=== PATIENT | female | born 1950 | race Caucasian/White ===

== ENCOUNTER → 2016-08-10 | Outpatient (CLI) | payer OTHER ==
[~2016-08-10] VITALS: Ht 172.7 cm; Wt 106.0 kg
[~2016-08-10] MED LIST: CENESTIN0.9 MG PO; FISH OIL 1,2001 EAC3 PO; FISHOIL PO; HYDROCODON-ACE1 EAC1 PO; HYDROCODON-ACE1 EAC5 PO; HYDROCODONE-AP1 EA12 PO; HYDROCODONE-APA1 TA1 PO; MULTI-VITAMIN1 EAC5 PO; OXYBUTYNIN 5 MG5 M2 PO; PROMETRIUM100 MG PO; SERTRALINE HCL100 MG PO; VENTOLIN HFA 1818 GM INH; VITAMIN D 5050000 I1 PO; ZOLOFT100 MG PO
--- NOTE | ~2016-08-10 | HPC ---
[facility] [place] [address] PAIN MANAGEMENT CONSULTATION Name: ALAYNA ELDRIDGE Room #: REG BIMAL Travis.#: [id number] Admission: 08/10/16 Attend Phys: Daryl Nguyen MD Discharge: Date of : 46 Report #: [id number] THIS REPORT FOR: //name// CC: Dillan Sweeney DO Daryl Nguyen DATE OF SERVICE: 08/10/2016 Followup visit for low back pain with radiculopathy. The patient returns to pain clinic for an epidural steroid injection. She has done well with these injections and last injection was performed in November 2015. She has recently returned from several airline flights where her pain has been exacerbated dramatically. She was using medication to control her pain, but currently is really uncomfortable and would like another injection. She has no spondylolisthesis. MEDICATIONS: Reviewed and reconciled from the electronic medical record. She has not needed new prescription, having received hydrocodone from me just a month ago. PHYSICAL EXAMINATION: Blood pressure 132/60, heart rate 65. She is a delightful easy going 65-year-old and moves easily from sitting to standing position. She has pain with movement of her spine. Straight leg raising is also positive. IMPRESSION: Low back pain with radiculopathy secondary to L4-L5 spondylolisthesis. PLAN: Epidural steroid injection under fluoroscopic guidance. PROCEDURE: She was taken to fluoroscopic suite for treatment, placed prone, skin prepped with ChloraPrep. Skin anesthetized to the left of midline and a 20-gauge Tuohy epidural needle advanced in the epidural space with loss of resistance technique. There was no blood or CSF aspirated, 1 mL of Omnipaque injected. Good spread of dye observed into the epidural space followed by 3 mL 0.5% lidocaine mixed with 80 mg of triamcinolone. She tolerated the procedure well and was observed for 45 minutes and discharged. Followup visit planned as needed. By: [id number] Daryl Nguyen MD /nt
[2016-08-10 14:40] VITALS: BP 132/60
== END | disposition home or self-care (01) ==
LOC: PAIN 07:03
DX: M43.16 Spondylolisthesis, lumbar region (principal); G89.29 Other chronic pain; F11.20 Opioid dependence, uncomplicated

== ENCOUNTER → 2016-11-24 | Outpatient (CLI) | payer OTHER ==
[~2016-11-24] VITALS: Ht 172.7 cm; Wt 99.2 kg
[~2016-11-24] MED LIST changes: +ASPIR 8181 MG PO; +HYDROCODONE-AP1 EA11 PO; +VITAMIN D3400 UNIT PO
--- NOTE | ~2016-11-24 | HPC ---
[facility] [place] [address] PAIN MANAGEMENT CONSULTATION Name: ALAYNA ELDRIDGE Hunter Room #: REG BIMAL Robles.#: [id number] Admission: 11/24/16 Attend Phys: Daryl Nguyen MD Discharge: Date of : 46 Report #: [id number] THIS REPORT FOR: //name// CC: [facility] physician/PCP Dillan Marin DATE OF SERVICE: 11/24/2016 Followup visit for L4-L5 spondylolisthesis with radiculopathy. The patient returns to pain clinic today in followup. She would like another epidural injection. I provided with roughly 3 epidural injections per year for symptoms of radiculopathy and she has responded very favorably. This is the shortest interval that we have had and is likely due to the fact that she has been packing for her move to [place], [place]. Her previous injection interval was roughly 6-7 months. Pain score intensity is a 6-7 today and radiates bilaterally into the legs in the L4-L5 distribution. She denies numbness or weakness. When the pain is severe, she takes hydrocodone, but is very modest in her use. I provided her with 120 tablets and she uses anywhere between 0 and a maximum of 1-2 tablets per day. She is allowed to take up to 4 tablets a day on an as needed basis. She is on an opioid agreement with our clinic, but we will release her from that when she travels to [place]. She uses a single pharmacy. She has had no drug aberrant behaviors and has been on time. Her safeguarding medications have been reviewed at each visit, and she assures us that her medications are kept under lock and burns. She is grateful for the pain relief that she receives and has no significant side effects from medication at the modest dose that she uses. I will provide her with medication today under terms of our agreement and she will transition her prescribing to a physician in [place]. We discussed the concerns for opioids in [place], which have been more serious than in other parts of the [facility]. Hopefully, she will be able to find a physician who is willing to provide this very modest amount of medication for her. We have reviewed the opioid crisis in the [place] and we have discussed the CDC guidelines for using medications carefully and we have been following them in our practice. PHYSICAL EXAMINATION: GENERAL: She is pleasant, alert and oriented. VITAL SIGNS: Blood pressure is 135/78, heart rate 80. EXTREMITIES: She moves from sitting to standing position, walks with antalgic features and notable bilateral pain is seen with straight leg raising following the L4-L5 distribution. Sensation is intact. No focal weakness. IMPRESSION: Chronic current lumbar radiculopathy secondary [place] [address] PAIN MANAGEMENT CONSULTATION Name: ALAYNA ELDRIDGE Room #: REG BIMAL Brooks#: [id number] Admission: 11/24/16 Attend Phys: Daryl Nguyen MD Discharge: Date of : 46 Report #: [id number] L4-L5. PLAN: Repeat epidural steroid injection under fluoroscopic guidance. PROCEDURE: She was taken to fluoroscopic suite, placed prone, skin prepped with ChloraPrep, skin anesthetized over the L4-L5 interspace. A 20-gauge Tuohy epidural needle advanced first attempt in the epidural space with loss of resistance. There was no blood or CSF aspirated. 1 mL of Omnipaque injected and good spread of dye observed in the epidural space. It was then followed by 3 mL of 0.5% lidocaine mixed with 80 mg triamcinolone. She tolerated the procedure well and was observed for 45 minutes and discharged. Followup visit is planned in the pain clinic if needed before she leaves [facility], but I think she will be fine. We will transition records to her new physician at request. Prescriptions were provided under terms of our opioid agreement. By: [id number] Daryl Nguyen MD /nt
[2016-11-24 10:45] VITALS: BP 134/82
== END | disposition home or self-care (01) ==
LOC: PAIN 08:00
DX: M43.16 Spondylolisthesis, lumbar region (principal); M54.16 Radiculopathy, lumbar region; G89.29 Other chronic pain; Z79.891 Long term (current) use of opiate analgesic; Z88.2 Allergy status to sulfonamides; Z88.0 Allergy status to penicillin; Z79.82 Long term (current) use of aspirin; Z98.890 Other specified postprocedural states